=== PATIENT | female | born 2000 | race Caucasian/White ===

== ENCOUNTER 2025-04-19 11:54 | Emergency (ER) | payer OTHER, SELFPAY ==
[2025-04-19 12:11] VITALS: BP 126/86; PULSE 68; RESP 16; TEMP 36.2; O2SAT 100
--- NOTE | 2025-04-19 12:16 | ED_ITS ---
HPI - Extremity Injury (Upper) General Chief Complaint: Extremity Injury, Upper Stated Complaint: cut finger patient presents to the [facility] accompanied by significant other with complaints of laceration to left index finger that happened just prior to arrival at home. Patient noted she was cleaning out a knife and accidentally c ut herself. Patient does note she recently had a tetanus vaccination earlier this year. Apply pressure to the area but noted the laceration continues to bleed. Denies numbness or tingling in hands or fingers. Related Data Home Medications ?Medication ?Instructions ?Recorded ?Confirmed ?Last Taken ?Type No Home Medications 04/19/25 04/19/25 U nknown History Allergies Allergy/AdvReac Type Severity Reaction Status Date / Time adhesive Allergy Mild Unknown Verified 04/19/25 12:20 latex Allergy Unknown Unknown Verified 04/19/25 12:20 Review of Systems Constitutional: Constitutional: Reports as per HPI, Denies chills, Denies fatigue, Denies fever(s) and Denies weakness Eyes: Eyes: Reports no additional eye complaints ENT: Reports system reviewed and no additional complaints, except as documented Cardiovascular: Cardiovascular: Reports no additional cardiovascular complaints Respiratory: Respiratory: Reports no additional respiratory complaints Gastrointestinal: Gastrointestinal: Reports no additional gastrointestinal complaints Genitourinary: Genitourinary: Reports no additional female genitourinary complaints Musculoskeletal: Musculoskeletal: Reports as per HPI, Denies arthralgias and Denies joint swelling Integumentary/Breasts: Skin/Breast: Reports as per HPI, Denies pruritus, Denies erythema and Denies rash Comments: Laceration left index finger Neurologic: Reports as per HPI, Denies numbness and Denies weakness Psychiatric: Psychiatric: Reports no additional psychiatric complaints Endocrine: Endocrine: Reports no additional endocrine complaints Hematologic/Lymphatic: Hematologic/Lymphatic: Reports no additional hematologic/lymphatic complaints Allergic/Immunologic: Allergic/Immunologic: Reports no additional allergic/immunologic complaints Exam Const: General: healthy appearing and no acute distress Nutritional Appearance: well nourished Orientation/consciousness: patient oriented x3 Limitations: no limitations Resp: Effort & Inspection: normal respiratory effort Auscultation: clear to auscultation bilaterally Cardio: Rate: regular rate Rhythm: regular rhythm Skin: General skin exam: normal color Rashes: no rashes Wounds: wounds noted Other: 1cm laceration to palmar side left inde x finger- mild bleeding noted. no gaping or regularity Neuro: General: patient oriented x3 and moves all extremities Speech: normal speech Gait exam (Neuro): Normal gait present Extrem: Left upper extremity: hand abnormal to inspection ( laceration), normal capillary refill, neuromotor exam normal, neurosensory exam normal, tendon exam normal, vascular exam radial pulse present, ulnar pulse present and normal capillary refill, normal ROM of fingers and laceration (2nd digit- palmar side. ); no tenderness, no unusual warmth, no swelling, no abrasions, no ecchymosis, no crepitus, no foreign bodies and no puncture wound Psych: Mental Status: mental status grossly normal Affect: normal affect Attitude: cooperative Course Course Level of Care: Express Care Visit Vital Signs Vital signs: Vital Signs Temperature 97.1 F L 04/19/25 12:11 Pulse Rate 68 04/19/25 12:11 Respiratory Rate 16 04/19/25 12:11 Blood Pressure 126/86 04/19/25 12:11 Pulse Oximetry 100 04/19/25 12:11 Temperature 97.1 F L 04/19/25 12:11 Pulse Rate 68 04/19/25 12:11 Respiratory Rate 16 04/19/25 12:11 Blood Pressure 126/86 04/19/25 12:11 Pulse Oximetry 100 04/19/25 12:11 Procedures Laceration Laceration 1: Date: 04/19/25 Time: 12:30 Site: hand Side (If applicable): left Size (cm): 1 Description: linear Depth: simple, single layer Local Anesthetic: lidocaine 1% Amount of anesthesia used (mL): 3 Pre-repair: wound explored ====== Skin Level ====== Skin layer closed with: vicryl Size (cm): 5-0 Number of sutures: 4 Technique: simple, interrupted ====== Subcutaneous Layer ====== ====== Muscle Layer ====== ====== Tendon Layer ====== Dressing: bacitracin and bandage [facility] Narrative Medical decision making narrative: laceration closed with sutures. Care instructions given to patient The patient was evaluated by myself in the express care. History is obtained from patient who is an independent historian and physical exam was performed. Available medical records were reviewed at this time. Exam findings show no acute concerns or changes; patient is non-toxic appearing and is in no distress. Patient is appropriate for outpatient treatment and follow-up. I have evaluated and discussed social determinants of health with the patient that could potentially impact subsequent diagnosis and treatment plans. Differential diagnosis and treatment plan were discussed with the patient. Patient agrees with discussion and after shared medical decision making agrees with plan of care. All questions were answered to the patient's satisfaction. Differential Diagnosis Differential Diagnosis: laceration, abrasion, avulsion Medical Records I have reviewed the following patient records and this information was taken into consideration when formulating the assessment and plan.: previous labs, previous ER visits, previous hospitalizations and previous clinic visits Lab Data MDM Lab Attestation statement: I personally reviewed the patient's lab results. Discharge Plan Discharge Clinical Impression: Laceration of index finger of left hand without complication Patient Disposition: Home Condition: Stable Instructions: Antibiotic Form, Care For Your Stitches (ED), Laceration (ED) Additional Instructions: -Keep the dressing clean and dry for 1-2days; then you may gently clean with soap and water whenever you take a shower; however no continuous water contact like dishes or swimming. Getting them too wet can slow down healing and raise your chance of getting an infection. After you wash your stitches or eliana, pat them dry and put an antibiotic ointment on them. -watch for signs of infection including: redness or swelling around the cut, or pus drains from the cut. It is normal for clear yellow fluid to drain from the cut in the first few days. -follow up with PCP for suture/staple in removal 7-10 days Patient Language: Citizen Of [place] Prescriptions: No Action No Home Medications Follow-up/Referrals: PHYSICIAN,[employer] PROCESSOR [Primary Care Provider, Internal Medicine] Time of Disposition: 12:42
[2025-04-19] MEDS: LIDOCAINE 1% LOCAL INJ 2 ML AMPUL 4 ML INFILTRATE (12:23)
== END 2025-04-19 12:49 | disposition home or self-care (01) ==
PROVIDERS: Emergency Provider Nurse Practitioner Family
DX: S61.211A Laceration without foreign body of left index finger without damage to nail, initial encounter (principal); W26.0XXA Contact with knife, initial encounter
CPT/HCPCS: 12001; 99202; G0463; J2003